=== PATIENT | female | born 1975 | race Caucasian/White ===

== ENCOUNTER 2018-12-25 21:51 | Inpatient (IN) | payer MEDICAID, OTHER ==
[~2018-12-25] VITALS: Ht 157.5 cm; Wt 62.0 kg
[~2018-12-25 21:51] MED LIST: HYDR-3601 PO; PREN1COM
[2018-12-26 00:39] VITALS: Ht 157.5 cm; Wt 62.0 kg
[2018-12-26 00:45] VITALS: BP 99/58; PULSE 72; RESP 20
[2018-12-26 02:00] VITALS: BP 100/59; RESP 18
[2018-12-26] MEDS ORDERED: NACL 0.9% 3 ML SYG IV SCH (03:30)
[2018-12-26] MEDS ORDERED: ALBUTEROL/IPRATROPIUM (NEB) 3 ML AMP HHN PRN (03:30)
[2018-12-26] MEDS ORDERED: VANCOMYCIN IV PER PHARMACY XX SCH (03:30)
[2018-12-26] MEDS ORDERED: ONDANSETRON 4 MG INJ IV PRN (03:30)
[2018-12-26] MEDS ORDERED: ACETAMINOPHEN 325 MG TAB PO PRN (03:30)
[2018-12-26] MEDS ORDERED: HYDROCODONE/APAP (5/325) TAB PO PRN (03:30)
[2018-12-26] MEDS ORDERED: VANCOMYCIN 1.25 GM/NS 250 ML 250 ML IVPB ONE (04:00)
[2018-12-26] MEDS: SOD CHLORIDE 0.9% 1,000 ML IV SCH ×3 (04:53→21:04)
[2018-12-26] MEDS: HYDROCODONE/APAP (5/325) TAB PO PRN ×2 (05:01→23:46)
[2018-12-26 07:38] VITALS: BP 97/59; PULSE 71; RESP 17
[2018-12-26] MEDS: CEFEPIME 1GM/50 ML (PMX) 50 ML IVPB SCH ×2 (08:54→21:04)
[2018-12-26 15:01] VITALS: BP 101/71; PULSE 78; RESP 20
[2018-12-26] MEDS: VANCOMYCIN 750 MG (PMX) 250 ML IVPB SCH (16:46)
[2018-12-26] MEDS ORDERED: morphine 4 MG/ML VIAL IV STA (18:51)
[2018-12-26 20:08] VITALS: BP 116/71; PULSE 77; RESP 16
[2018-12-26] MEDS: DOCUSATE SODIUM 100 MG CAP PO SCH (21:00)
[2018-12-26] MEDS: SENNA TAB PO SCH (21:00)
[2018-12-27] MEDS: VANCOMYCIN 750 MG (PMX) 250 ML IVPB SCH ×2 (04:01→18:24)
[2018-12-27 04:12] VITALS: BP 101/61; PULSE 80; RESP 18
[2018-12-27 07:55] VITALS: BP 109/65; PULSE 82; RESP 16
[2018-12-27] MEDS: SENNA TAB PO SCH ×2 (08:31→20:16)
[2018-12-27] MEDS: DOCUSATE SODIUM 100 MG CAP PO SCH ×2 (08:31→20:16)
[2018-12-27] MEDS: CEFEPIME 1GM/50 ML (PMX) 50 ML IVPB SCH ×2 (08:31→20:51)
[2018-12-27] MEDS: SOD CHLORIDE 0.9% 1,000 ML IV SCH ×2 (08:35→19:18)
[2018-12-27] MEDS ORDERED: FLU VACC QS 2019-20 (6MOS UP) 0.5 ML SYG IM* ONE (10:00)
[2018-12-27] MEDS: POTASSIUM CHLORIDE 100 ML IVPB SCH ×2 (12:24→20:57)
[2018-12-27 14:32] VITALS: BP 117/68; PULSE 85; RESP 17
[2018-12-27] MEDS ORDERED: SOD CHLORIDE 0.9% 100 ML ONE (16:24)
[2018-12-27] MEDS ORDERED: IOHEXOL 300MG/ML 150 ML BTL ONE (16:24)
[2018-12-27 20:49] VITALS: BP 131/84; PULSE 97; RESP 18
[2018-12-27] MEDS ORDERED: POTASSIUM CHLORIDE (SR) 20 MEQ TAB PO ONE (21:30)
[2018-12-28] MEDS: VANCOMYCIN 500 MG (PMX) 100 ML IVPB SCH ×2 (02:02→10:51)
[2018-12-28] MEDS: HYDROCODONE/APAP (5/325) TAB PO PRN ×3 (02:03→22:02)
[2018-12-28 02:18] VITALS: BP 108/65; PULSE 86; RESP 18
[2018-12-28] MEDS: SOD CHLORIDE 0.9% 1,000 ML IV SCH ×2 (05:48→15:18)
[2018-12-28 07:51] VITALS: BP 100/66; PULSE 78; RESP 20
[2018-12-28] MEDS: DOCUSATE SODIUM 100 MG CAP PO SCH ×2 (09:44→22:01)
[2018-12-28] MEDS: CEFEPIME 1GM/50 ML (PMX) 50 ML IVPB SCH ×2 (09:44→22:02)
[2018-12-28] MEDS: SENNA TAB PO SCH ×2 (09:44→22:02)
[2018-12-28 14:54] VITALS: BP 105/64; PULSE 81; RESP 18
[2018-12-28 19:50] VITALS: BP 97/58; PULSE 79; RESP 17
[2018-12-29 02:45] VITALS: BP 99/68; PULSE 73; RESP 16
[2018-12-29 08:00] VITALS: BP 104/59; PULSE 75; RESP 16
[2018-12-29] MEDS: DOCUSATE SODIUM 100 MG CAP PO SCH (09:30)
[2018-12-29] MEDS: SENNA TAB PO SCH (09:30)
[2018-12-29] MEDS: CEFEPIME 1GM/50 ML (PMX) 50 ML IVPB SCH (09:30)
[2018-12-29] MEDS: HYDROCODONE/APAP (5/325) TAB PO PRN (09:38)
[2018-12-29 14:23] VITALS: BP 99/62; PULSE 81; RESP 16
== END 2018-12-29 15:50 | disposition home health service (06) | DRG 863 ==
LOC: 2NE 12-26 00:21
PROVIDERS: ADMIT Internal Medicine; ATTEND Internal Medicine
DX: T81.41XA Infection following a procedure, superficial incisional surgical site, initial encounter (principal); L76.34 Postprocedural seroma of skin and subcutaneous tissue following other procedure; R07.81 Pleurodynia; Y83.8 Other surgical procedures as the cause of abnormal reaction of the patient, or of later complication, without mention of misadventure at the time of the procedure
CPT/HCPCS: 71045; 74177; 80048; 80053; 80202; 83735; 84100; 84703; 85025; 90686; J0692; J2270; J3370; J3480; J7030; Q9967